=== PATIENT | female | born 1955 | race Caucasian/White ===

== ENCOUNTER 2019-10-07 16:25 | Inpatient (IN) | payer MEDICARE, OTHER ==
[~2019-10-07] VITALS: Ht 160 cm; Wt 45.4 kg
[2019-10-07] MEDS ORDERED: LEVO50TA8 PO (16:58)
[2019-10-07] MEDS ORDERED: ONDA4VIA52 IVP (16:58)
[2019-10-07] MEDS ORDERED: PANT40TA2 PO (16:58)
[2019-10-07] MEDS ORDERED: LORA2VIA11 IM (16:58)
[2019-10-07] MEDS ORDERED: HALO5TAB PO (16:58)
[2019-10-07] MEDS ORDERED: DIPH50VI18 IM (16:58)
[2019-10-07] MEDS ORDERED: CLON0.1T PO (16:58)
[2019-10-07] MEDS ORDERED: MAGN400O6 PO (16:58)
[2019-10-07] MEDS ORDERED: NALO0.4V2 IVP (16:58)
[2019-10-07] MEDS ORDERED: HALO5SYR IM (16:58)
[2019-10-07] MEDS ORDERED: ACET-868 PO (16:58)
[2019-10-07] MEDS ORDERED: MAG HYDROX/AL HYDROX/SIMETH 30 ML UDC PO PRN (17:00)
[2019-10-07] MEDS ORDERED: LORAZEPAM 0.5 MG TABLET PO PRN (17:00)
[2019-10-07] MEDS ORDERED: BLOOD SUGAR DIAGNOSTIC 1 EACH STRIP IN ONE (17:00)
[2019-10-07] MEDS ORDERED: MAGNESIUM HYDROXIDE 30 ML UDC PO PRN ×2 (17:00→21:30)
[2019-10-07] MEDS ORDERED: ACETAMINOPHEN 325 MG TABLET PO PRN ×2 (17:00→21:30)
[2019-10-07 17:04] VITALS: BP 144/71
--- NOTE | 2019-10-07 18:07 | NUR ---
STATEMENT CLERKS MANAGER NOTE:ADMITTED A 64 Y/O FEMALE ON 5150 HOLD FOR DTO . PER 5150 HOLD PATIENT HAS HX OF BIPOLAR AGGRESSIVE TALKS NONSENSICALLY ,STAFF CONCERNS FOR THEIR OWN SAFETY .ON 1:1 ASSESSMENT PATIENT ALERT ,OX1 , EASILY AGITATED ,YELLING AND NOT FOLLOWING DIRECTIONS ,UNSTEADY GAIT ,ON FALL PRECAUTION PATIENT REFUSED MRSA ,PATIENT STATED "LEAVE ME ALONE", AND YELL AND TALKING LOUD ,DISRUPTING THE UNIT. PATIENT HAS HX OF HYPOKALEMIA ,DEHYDRATION ,ANEMIA ,HYPERLIPIDEMIA,KYPHOSIS ,BIPOLAR AND UTI ,SKIN ASSESSMENT DONE REDNESS DOUGLAS ARMS AND DRY LOWER LEFT FOOT ,SKIN DISCOLORATION ON MID CHEST ,LEFT ARM SKIN TEAR . AND NOTIFIED WITH ADMISSION ORDERS .PATIENT'S RIGHT HAND BOOK GIVEN AND EXPLAINED TO PATIENT ABLE TO VERBALIZE UNDERSTANDING .ORIENT PATIENT TO UNIT .START PATIENT ON Q15 MINUTES SAFETY CHECK.
[2019-10-07 20:05] VITALS: BP 138/63
[2019-10-07] MEDS ORDERED: ONDANSETRON HCL/PF 4 MG/2 ML VIAL IVP PRN (21:30)
[2019-10-07] MEDS: TEMAZEPAM 7.5 MG CAPSULE PO PRN (21:41)
--- NOTE | 2019-10-07 21:41 | NUR ---
GPS-RN NOTE: INSOMNIA PATIENT C/O INABILITY TO SLEEP. ADMINISTERED RESTORIL 7.5MG PO ORDERED. WILL CONTINUE TO MONITOR FOR SAFETY.
--- NOTE | 2019-10-08 06:48 | NUR ---
GPS RN NOTE, PATIENT HAS A COMPLAINT OF CONSTIPATION AND IS REQUESTING MOM AT THIS TIME. PATIENT VITAL SIGNS ARE STABLE. GAVE MOM 30 ML PO Q DAILY PRN ORDERED. WILL CONTINUE TO MONITOR THIS PATIENT.
[2019-10-08] MEDS: PANTOPRAZOLE 40 MG TABLET.DR PO SCH (07:56)
[2019-10-08] MEDS: LEVOTHYROXINE SODIUM 50 MCG TABLET PO SCH (07:56)
[2019-10-08 08:00] VITALS: BP 135/79
[2019-10-08] MEDS: CLONIDINE HCL 0.1 MG TABLET PO SCH ×2 (08:12→16:05)
[2019-10-08 08:42] LABS: ALBUMIN 2.2 g/dL (3.4-5.0); BILIRUBIN,TOTAL 0.7 mg/dL (0.2-1.0); CALCIUM, SERUM 8.3 mg/dL (8.5-10.1); CREATININE 0.6 mg/dL (0.6-1.3); POTASSIUM 3.8 mmol/L (3.5-5.1); TOTAL PROTEIN, SERUM 5.4 g/dL (6.4-8.2)
[2019-10-08] MEDS: BENZTROPINE MESYLATE (1 MG) 1 MG TABLET PO SCH ×2 (11:08→16:04)
[2019-10-08] MEDS: HALOPERIDOL 5 MG TABLET PO SCH ×2 (11:08→16:05)
[2019-10-08] MEDS: GABAPENTIN 100 MG CAPSULE PO SCH ×2 (12:19→16:04)
--- NOTE | 2019-10-08 13:25 | NUR ---
Terrell Mazariegos made aware of the discharge and said to continue same meds and d/c prn. Terrell Mazariegos ordered Covid 19 test in the facility. Addendum: 10/08/19 at 1549 by BEHZAD WRIGHT RN wrong pt. documentation
--- NOTE | 2019-10-08 14:05 | NUR ---
Family Contact: SW called the pts motherSil ([phone]), but the phone was disconnected.
--- NOTE | 2019-10-08 14:24 | NUR ---
Initial Discharge Plan: Pt currently lives alone in her home located at [address] [place] [address]; ([phone]). Per pt, she would like to return home but may need some services. SW will work with the pt and the MD regarding appropriate discharge planning. SW will form a safe and proper discharge.
[2019-10-08 16:00] VITALS: BP 141/82
--- NOTE | 2019-10-08 18:28 | NUR ---
GPS/RN-NOTES PER ACCIDENT INVESTIGATOR AT AROUND 1800 PATIENT ROOMMATE SHOUTED FOR HELP, CHARGE NURSE AND ACCIDENT INVESTIGATOR STAFF COME TO THE ROOM AND FOUND PATIENT SITTING ON THE FLOOR AND ASSIST PATIENT UP THE BED.ON FACE TO FACE ASSESSMENT BY THE MECHATRONICS ENGINEER PATIENT STATED" I PARK MY WALKER AND WALK TO MY BED AND HIT THE WALL AND FELL". NOTED A BUMP ON THE LEFT SIDE OF THE FOREHEAD COLD PACK APPLIED. VITAL SIGN FOLLOWS BP 119/71,P75,R 20,TEMP. 98.7 AND 02 SAT 98% ROOM AIR. DR. CRUZ MADE AWARE WITH T.O ORDER OF CT OF THE HEAD WITHOUT CONTRAST. NOTED AND CARRIED OUT BY THE CHARGE NURSE. ROTARY PUMP OPERATOR,HEAD BANQUET WAITRESS AND DR. MENDEZ MADE AWARE OF THE INCIDENT. CALLED PATIENT'S MOTHER HUA ESCOBAR AT ([phone]) BUT THE NUMBER WAS NOT INSERVICE.WILL CONT. MONITORING PATIENT FOR ANY SIGNIFICANT CHANGES AND WILL ENDORSE TO INCOMING NURSE FOR CONTINUITY OF CARE.
--- NOTE | 2019-10-08 18:39 | NUR ---
Dr. Rizzo made aware of the fall incident and ordered to change Haldol to 2.5 mg po BID.
--- NOTE | 2019-10-08 20:13 | NUR ---
GPS RN NOTES: CT SCAN RESULTS RECEIVE CT SCAN WO CONTRAST RESULTS. WITH RESULTS SHOW NO ACUTE INTER HEMORRHAGE, POST TRAUMATIC SOFT TISSUE SWELLING LATERAL LEFT FRONTAL SCALP, AND CHRONIC MICROVASCULAR ISCHEMIC DISEASE. RESULTS REVIEWED AND SIGNED BY MD GABRIEL CARR. PT HAS NO S/S OF PAIN AT THIS TIME. BREATHING EVEN AND UNLABORED. NO SON. NO RESP DISTRESS. BREATHING EVEN AND UNLABORED. CONTINUE TO MONITOR.
[2019-10-08] MEDS: ATORVASTATIN 10 MG TABLET PO SCH (21:07)
[2019-10-08 21:09] VITALS: BP 108/53
--- NOTE | 2019-10-09 03:21 | NUR ---
GPS RN NOTES: UPON DOING ROUNDS PT IN BED ASLEEP COMFORTABLE. PT IS EASY TO WAKE UP WITH LIGHT STIMULI. NO S/S OF SOB. BREATHING EVEN AND UNLABORED. NO S/S PF RESPIRATORY DISTRESS. PT HAS NO COMPLAINT OF PAIN AT THIS TIME. BED ALARM ON. BED LOCKED IN PLACE. KEPT CLEAN AND DRY. CONTINUE TO MONITOR.
[2019-10-09 08:00] VITALS: BP_SYST 139; BP_SYST 140; BP_DIAS 54; BP_DIAS 75
[2019-10-09] MEDS: LEVOTHYROXINE SODIUM 50 MCG TABLET PO SCH (08:41)
[2019-10-09] MEDS: CLONIDINE HCL 0.1 MG TABLET PO SCH ×2 (08:41→17:58)
[2019-10-09] MEDS: PANTOPRAZOLE 40 MG TABLET.DR PO SCH (08:42)
[2019-10-09] MEDS: GABAPENTIN 100 MG CAPSULE PO SCH ×3 (08:42→17:59)
[2019-10-09] MEDS: BENZTROPINE MESYLATE (1 MG) 1 MG TABLET PO SCH ×2 (08:42→17:59)
[2019-10-09] MEDS ORDERED: HALOPERIDOL 5 MG TABLET PO SCH (09:00)
[2019-10-09] MEDS: HALOPERIDOL 5 MG TABLET PO SCH ×2 (12:16→17:58)
[2019-10-09] MEDS ORDERED: GABAPENTIN 100 MG CAPSULE PO SCH (13:00)
--- NOTE | 2019-10-09 14:15 | NUR ---
Individual Intervention: SW attempted to encourage the pt to participate in group therapy but the pt appeared to be agitated and was screaming at the nurses about her coffee. Pt refused to attend group or have an individual session with the SW. SW deemed the pt inappropriate for therapy at this time due to her agitation.
[2019-10-09 16:00] VITALS: BP 122/68
--- NOTE | 2019-10-09 16:49 | NUR ---
Daughter called to check in on her mother. Daughters phone number is [phone].
[2019-10-09 21:17] VITALS: BP 125/47
[2019-10-09] MEDS: ATORVASTATIN 10 MG TABLET PO SCH (21:28)
[2019-10-09] MEDS: TEMAZEPAM 7.5 MG CAPSULE PO PRN (21:28)
[2019-10-10] MEDS: LEVOTHYROXINE SODIUM 50 MCG TABLET PO SCH (07:52)
[2019-10-10] MEDS: PANTOPRAZOLE 40 MG TABLET.DR PO SCH (07:52)
[2019-10-10 08:00] VITALS: BP 127/73
[2019-10-10] MEDS: CLONIDINE HCL 0.1 MG TABLET PO SCH ×2 (08:11→17:01)
[2019-10-10] MEDS: HALOPERIDOL 5 MG TABLET PO SCH ×2 (08:12→13:54)
[2019-10-10] MEDS: GABAPENTIN 100 MG CAPSULE PO SCH ×2 (08:12→17:02)
[2019-10-10] MEDS: BENZTROPINE MESYLATE (1 MG) 1 MG TABLET PO SCH ×2 (08:12→17:02)
--- NOTE | 2019-10-10 09:00 | NUR ---
RN NOTE- PT ANXIOUS AND LOUD AT TIMES, RESPONDING TO INTERNAL STIMULUS, TALKING TO SELF MUMBLING. PT PO INTAKE GOOD MED COMPLIANT, DENIES SI HI AH VH. REORIENTATION REDIRECTION NEEDED AT TIMES
[2019-10-10] MEDS ORDERED: GABAPENTIN 100 MG CAPSULE PO SCH (13:00)
[2019-10-10 16:00] VITALS: BP 134/65
[2019-10-10 20:00] VITALS: BP 115/73
[2019-10-10] MEDS ORDERED: HALOPERIDOL 5 MG TABLET PO SCH ×2 (20:00)
[2019-10-10] MEDS: ATORVASTATIN 10 MG TABLET PO SCH (21:43)
[2019-10-10] MEDS: TEMAZEPAM 7.5 MG CAPSULE PO PRN (21:46)
--- NOTE | 2019-10-11 07:10 | NUR ---
GPS RN OPENING NOTES RECEIVED PT SITTING BY THE EDGE OF THE BED. AO X1. NO SOB NOTED. NO S/S OF ANY ACUTE DISTRESS NOTED. NO C/O PAIN AT THIS TIME. RESPIRATIONS EVEN AND UNLABORED WITH EQUAL RISE AND FALL OF THE CHEST. PT ON RA AND SATURATING AT 99%. PT DENIES ANY SI, HI, AH AND VH AT THIS TIME. PT ANXIOUS, LOUD AND MUMBLING AT TIMES. PT REORIENTATION AND REDIRECTION NEEDED AT TIMES. BED IN LOWEST LOCKED POSITION, HOB ELEVATE, SIDE RAILS UP, BED ALARM ON, CALL LIGHT WITHIN REACH, WILL CONTINUE TO MONITOR Q15MIN
[2019-10-11 08:00] VITALS: BP 138/82
[2019-10-11] MEDS: HALOPERIDOL 5 MG TABLET PO SCH ×3 (08:00→20:08)
[2019-10-11] MEDS: PANTOPRAZOLE 40 MG TABLET.DR PO SCH (08:00)
[2019-10-11] MEDS: CLONIDINE HCL 0.1 MG TABLET PO SCH ×2 (08:01→16:51)
[2019-10-11] MEDS: BENZTROPINE MESYLATE (1 MG) 1 MG TABLET PO SCH ×2 (08:01→16:51)
[2019-10-11] MEDS: GABAPENTIN 100 MG CAPSULE PO SCH ×3 (08:01→16:51)
[2019-10-11] MEDS: LEVOTHYROXINE SODIUM 50 MCG TABLET PO SCH (08:02)
[2019-10-11 16:00] VITALS: BP 140/77
--- NOTE | 2019-10-11 19:50 | NUR ---
GPS RN NOTES RECEIVED PATIENT FROM MORNING SHIFT, ALERT AND ORIENTED X 2. HYPERVERBAL, ANXIOUS AND EASILY AGITATED. BREATHING REGULAR AND UNLABORED ON ROOM AIR. DENIES ANY SUICIDAL IDEATION, NO S/S OF PAIN/DISCOMFORT NOTED AT THIS TIME. BED LOW AND LOCKED ON SEMI FOWLERS POSITION. WILL CONTINUE TO MONITOR FOR SAFETY AND BEHAVIOR.
[2019-10-11 20:00] VITALS: BP 98/55
[2019-10-11 21:22] VITALS: BP 98/55
[2019-10-11] MEDS: ATORVASTATIN 10 MG TABLET PO SCH (21:54)
--- NOTE | 2019-10-12 06:25 | NUR ---
GPS RN NOTES PATIENT IN BED ALERT AND ORIENTED X 1-2 HYPERVERBAL, AGITATED AND ATTENTION SEEKING. AFEBRILE WITH NO S/S OF DISTRESS OBSERVED. DENIES ANY PAIN/DISCOMFORT. BED LOW AND LOCKED ON SEMI FOWLERS POSITION. WILL ENDORSE TO MORNING SHIFT FOR TANIYA.
[2019-10-12 08:00] VITALS: BP 155/96
[2019-10-12] MEDS: GABAPENTIN 100 MG CAPSULE PO SCH ×3 (08:33→16:12)
[2019-10-12] MEDS: LEVOTHYROXINE SODIUM 50 MCG TABLET PO SCH (08:33)
[2019-10-12] MEDS: BENZTROPINE MESYLATE (1 MG) 1 MG TABLET PO SCH ×2 (08:33→16:12)
[2019-10-12] MEDS: CLONIDINE HCL 0.1 MG TABLET PO SCH ×2 (08:33→16:12)
[2019-10-12] MEDS: PANTOPRAZOLE 40 MG TABLET.DR PO SCH (08:33)
[2019-10-12] MEDS: HALOPERIDOL 5 MG TABLET PO SCH ×3 (08:34→20:16)
--- NOTE | 2019-10-12 10:46 | NUR ---
SNF Referral: SW faxed a referral to the following two alf facilities: [facility] with attn to Ashlie to the fax number: [phone] [facility] with attn to Lorie to the fax number: [phone].
--- NOTE | 2019-10-12 13:57 | NUR ---
SNF Referral: Susie ([phone]) from [facility] contacted the SW and stated that they are not accepting pts at this time.
--- NOTE | 2019-10-12 14:23 | NUR ---
Individual Counseling: This SW met with pt. at bedside to facilitate therapeutic milieu. However, the pt. is not suitable for therapeutic milieu as they present irritable, agitated and verbally aggressive. Patient will be invited to participate in future therapeutic milieu.
--- NOTE | 2019-10-12 15:17 | NUR ---
SNF Contact: Ashlie ([phone]) from [facility] contacted the SW and stated that the pt was admitted to their facility.
[2019-10-12 16:00] VITALS: BP 144/83
--- NOTE | 2019-10-12 16:48 | NUR ---
INDIVIDUAL MEETING: SW met with pt to discuss her discharge plan, pt refused SNF placement and states she wants to return to her home with her caregiver and daughter. Pt requested SW call her daughter to arrange transportation with her. SW stated she would call her daughter Juanita ([phone]) to ask if it is safe for her to return to her home where pt lives alone and also to confirm if pt has a caregiver.
--- NOTE | 2019-10-12 16:50 | NUR ---
FAMILY CONTACT: SW contacted pts daughter Juanita ([phone]) to discuss pts discharge plan. Daughter states pt is not able to return to her home as pts home is inhabitable and pt is unable to care for herself. She states that pts caregiver is also unable to care for pt due to COVID-19. Daughter wishes for pt to be discharged to a SNF. SW informed her that pt has been referred to a SNF and placement is pending. SW will update daughter as needed.
[2019-10-12 20:28] VITALS: BP 158/95
[2019-10-12] MEDS: ATORVASTATIN 10 MG TABLET PO SCH (21:23)
--- NOTE | 2019-10-13 04:01 | NUR ---
GPS RN NOTES: UPON DOING ROUNDS PT AWAKE. ASKED PT TO EXPRESS ANY CONCERNS SHE HAS. PT STATED, "NO. IM GOOD. I HAD A GOOD QUICK NAP EARLIER PLUS MY ROOMMATE USED THE RESTROOM NOT TO LONG AGO, SO IT WOKE ME UP." PT DENIES ANY PAIN OF NOW. PT DENIES HEADACHE OF RIGHT NOW. NO S/S OF RESP DISTRESS. BREATHING EVEN AND UNLABORED. NO SOB. PT IS LYING IN BED COMFORTABLY WITH BED ALARM ON. CALL DUPREE WITHIN REACH. BED LOCKED AND LOWEST POSITION FOR FALL RISKS. ENCOURAGED PT TO EXPRESS TO STAFF IF SHE HAS ANY OTHER CONCERNS SHE MAY HAVE ANYTIME. PT AGREED AND UNDERSTANDS. CONTINUE TO MONITOR.
--- NOTE | 2019-10-13 04:53 | NUR ---
GPS RN NOTES: UPON DOING ROUNDS, PT AWAKE SITTING ON HER BED TALKING TO HERSELF QUIETLY AND SPEAKING INAPPROPRIATE LANGUAGE. ASKED PT TO EXPRESS ANY CONCERNS TO STAFF. PT QUIET IN RESPONSE. ASKED PT IF SHE IS FEELING ANXIOUS PT STATED, "MAYBE I AM, MAYBE IM NOT. WHAT WILL YOU DO?" OFFERED ATIVAN 0.5MG PO PRN ORDERED. PT REFUSED. OFFERED TO TO CHECK VITAL SIGNS. PT REFUSED. PT INCREASE AGITATION. EXPLAIN RISKS AND BENEFITS. PT STILL REFUSED X3. CONTINUE TO MONITOR.
[2019-10-13 07:29] LABS: EOSINOPHILS % (AUTO) 1.2 % (0.0-6.0); HEMATOCRIT 30 % (33-45); HEMOGLOBIN 10.2 g/dL (11.5-14.8); LYMPHOCYTES % (AUTO) 20.9 % (20.0-44.0); MEAN CORPUSCULAR HGB CONC 34 g/dl (31.0-36.0); MEAN CORPUSCULAR VOLUME 106 fL (82-100); MONOCYTES # (AUTO) 0.3 /CMM (0.1-1.30); NEUTROPHILS # (AUTO) 3.4 /CMM (1.8-8.9); NEUTROPHILS % (AUTO) 69.9 % (43.0-81.0); PLATELET COUNT (AUTO) 212 /CMM (150-450); RED BLOOD CELL COUNT(AUTO) 2.87 MIL/uL (4.0-5.2); WHITE BLOOD COUNT (AUTO) 4.8 K/uL (4.3-11.0)
[2019-10-13 07:47] LABS: ALBUMIN 2.1 g/dL (3.4-5.0); BILIRUBIN,TOTAL 0.5 mg/dL (0.2-1.0); CALCIUM, SERUM 8.3 mg/dL (8.5-10.1); CREATININE 0.5 mg/dL (0.6-1.3); POTASSIUM 3.6 mmol/L (3.5-5.1); TOTAL PROTEIN, SERUM 5.3 g/dL (6.4-8.2)
[2019-10-13] MEDS: LEVOTHYROXINE SODIUM 50 MCG TABLET PO SCH (07:56)
[2019-10-13] MEDS: PANTOPRAZOLE 40 MG TABLET.DR PO SCH (07:56)
[2019-10-13 08:00] VITALS: BP 146/88
[2019-10-13] MEDS: HALOPERIDOL 5 MG TABLET PO SCH ×3 (08:04→20:30)
[2019-10-13] MEDS: CLONIDINE HCL 0.1 MG TABLET PO SCH ×2 (08:05→16:28)
[2019-10-13] MEDS: GABAPENTIN 100 MG CAPSULE PO SCH ×3 (08:05→16:28)
[2019-10-13] MEDS: BENZTROPINE MESYLATE (1 MG) 1 MG TABLET PO SCH ×2 (08:05→16:28)
[2019-10-13 16:00] VITALS: BP 129/75
[2019-10-13 20:56] VITALS: BP 130/76
[2019-10-13] MEDS: ATORVASTATIN 10 MG TABLET PO SCH (21:09)
[2019-10-14] MEDS: PANTOPRAZOLE 40 MG TABLET.DR PO SCH (07:30)
[2019-10-14] MEDS: LEVOTHYROXINE SODIUM 50 MCG TABLET PO SCH (07:30)
[2019-10-14 08:00] VITALS: BP 152/97
[2019-10-14] MEDS: HALOPERIDOL 5 MG TABLET PO SCH ×3 (08:49→20:28)
[2019-10-14] MEDS: BENZTROPINE MESYLATE (1 MG) 1 MG TABLET PO SCH ×2 (08:50→17:54)
[2019-10-14] MEDS: CLONIDINE HCL 0.1 MG TABLET PO SCH ×2 (08:51→17:54)
[2019-10-14] MEDS: GABAPENTIN 100 MG CAPSULE PO SCH ×3 (08:52→17:54)
[2019-10-14 16:00] VITALS: BP 150/66
[2019-10-14 20:56] VITALS: BP 121/57
[2019-10-14] MEDS: ATORVASTATIN 10 MG TABLET PO SCH (21:03)
[2019-10-15 08:00] VITALS: BP 156/84
[2019-10-15] MEDS: CLONIDINE HCL 0.1 MG TABLET PO SCH ×2 (08:05→16:25)
[2019-10-15] MEDS: GABAPENTIN 100 MG CAPSULE PO SCH ×3 (08:05→16:25)
[2019-10-15] MEDS: BENZTROPINE MESYLATE (1 MG) 1 MG TABLET PO SCH ×2 (08:05→16:26)
[2019-10-15] MEDS: PANTOPRAZOLE 40 MG TABLET.DR PO SCH (08:05)
[2019-10-15] MEDS: LEVOTHYROXINE SODIUM 50 MCG TABLET PO SCH (08:06)
[2019-10-15] MEDS: HALOPERIDOL 5 MG TABLET PO SCH ×3 (08:06→20:06)
--- NOTE | 2019-10-15 12:00 | NUR ---
RN NOTES PT SEEN AND EVALUATED BY DR MENDEZ THIS MORNING AND RECOMMENDED TO TEST FOR COVID AND FOR HOSPITALIST/TS. PT HAS COUGH, NON PRODUCTIVE. PT AFEBRILE, 98.6. HOSPITALIST/TS PAGED AND SPOKE TO HIM WITH LAB ORDERS NOTED, LDH, FERRITIN AND CRP STAT; AND TO NOTIFY TS WITH THE RESULTS. WILL CONTINUE TO MONITOR PT.
[2019-10-15 14:55] LABS: FERRITIN 736 ng/mL (8-388)
--- NOTE | 2019-10-15 15:04 | NUR ---
INDIVIDUAL INTERVENTION: SW attempted to meet with pt. However, pt has been experiencing a cough and not feeling well. Pt did not want to talk to SW and was laying in bed.
[2019-10-15 15:07] LABS: C-REACTIVE PROTEIN < 0.2 mg/dL (0.0-0.9)
--- NOTE | 2019-10-15 15:22 | NUR ---
RN NOTES RESULTS CAME BACK AND INFORMED HOSPITALIST/TS. AWAITING FOR FURTHER ORDERS. WILL CONTINUE TO MONITOR PT.
--- NOTE | 2019-10-15 15:40 | NUR ---
RN NOTES HOSPITALIST/TS RESPONDED, PER LAB RESULTS OF LDH, FERRITIN AND CRP. PT DO NOT NEED TO BE TESTED FOR COVID. PT MADE AWARE AND WILL ENDORSE TO INCOMING NIGHT NURSE FOR TANIYA WELL. CN/ZAYNAB MADE AWARE WELL.
[2019-10-15 16:00] VITALS: BP 133/61
[2019-10-15 18:05] LABS: BASOPHILS # (AUTO) 0.1 /CMM (0.0-0.2); BASOPHILS % (AUTO) 1.3 % (0.0-2.0); EOSINOPHILS % (AUTO) 1.3 % (0.0-6.0); HEMATOCRIT 31 % (33-45); HEMOGLOBIN 10.2 g/dL (11.5-14.8); MEAN CORPUSCULAR HGB CONC 33 g/dl (31.0-36.0); MEAN CORPUSCULAR VOLUME 107 fL (82-100); MONOCYTES # (AUTO) 0.4 /CMM (0.1-1.30); MONOCYTES % (AUTO) 7.9 % (2.0-12.0); NEUTROPHILS # (AUTO) 3.2 /CMM (1.8-8.9); NEUTROPHILS % (AUTO) 67.5 % (43.0-81.0); PLATELET COUNT (AUTO) 234 /CMM (150-450); RED BLOOD CELL COUNT(AUTO) 2.85 MIL/uL (4.0-5.2); WHITE BLOOD COUNT (AUTO) 4.7 K/uL (4.3-11.0)
[2019-10-15 18:16] LABS: ALBUMIN 2.2 g/dL (3.4-5.0); BILIRUBIN,TOTAL 0.4 mg/dL (0.2-1.0); CALCIUM, SERUM 7.9 mg/dL (8.5-10.1); CREATININE 0.6 mg/dL (0.6-1.3); POTASSIUM 4.3 mmol/L (3.5-5.1); TOTAL PROTEIN, SERUM 5.6 g/dL (6.4-8.2)
[2019-10-15 20:42] VITALS: BP 142/78
--- NOTE | 2019-10-15 20:45 | NUR ---
GPS RN NOTE, OFFERED COVID-19 TEST AND SWAB FOR THIS PATIENT BUT PATIENT REFUSED STATING, " I DON'T WANT ANY SWAB GOING UP MY NOSE ". OFFERED SWAB THREE TIMES AND STILL PATIENT REFUSED STATING, " I REFUSE, I REFUSE, I REFUSE ". EDUCATED PATIENT ON BENEFITS AND RISKS OF DOING AFOREMENTIONED TEST. PATIENT TEMP IS 98.5 WITH A SPO2 OF 99%. WILL CONTINUE TO MONITOR THIS PATIENT WITH THE HELP OF STAFF.
[2019-10-15] MEDS: ATORVASTATIN 10 MG TABLET PO SCH (21:10)
[2019-10-16 08:00] VITALS: BP 155/82
[2019-10-16] MEDS: HALOPERIDOL 5 MG TABLET PO SCH ×3 (08:12→20:37)
[2019-10-16] MEDS: CLONIDINE HCL 0.1 MG TABLET PO SCH ×2 (08:13→16:24)
[2019-10-16] MEDS: LEVOTHYROXINE SODIUM 50 MCG TABLET PO SCH (08:13)
[2019-10-16] MEDS: GABAPENTIN 100 MG CAPSULE PO SCH ×4 (08:13→20:37)
[2019-10-16] MEDS: PANTOPRAZOLE 40 MG TABLET.DR PO SCH (08:13)
[2019-10-16] MEDS: BENZTROPINE MESYLATE (1 MG) 1 MG TABLET PO SCH ×2 (08:13→16:24)
--- NOTE | 2019-10-16 10:29 | NUR ---
RN NOTE- PT IN ROOM, LOUD OPPOSITIONAL AT TIMES, MED COMPLIANT, NEEDS ATTENDED. REFUSES SHOWER AND ADLS. DENIES ALL. TALKING TO SELF RESPONDING
[2019-10-16 16:13] VITALS: BP 134/74
[2019-10-16 20:19] VITALS: BP 112/70
[2019-10-16] MEDS: ATORVASTATIN 10 MG TABLET PO SCH (21:41)
[2019-10-16] MEDS: TEMAZEPAM 7.5 MG CAPSULE PO PRN (21:42)
--- NOTE | 2019-10-16 22:50 | NUR ---
GPS RN NOTES: AT 2210 PT WAS FOUND ON THE FLOOR OF HER ROOM BY STAFF LAYING ON HER RIGHT SIDE. PT WAS ASSISTED UP AND BACK IN BED AND VITAL SIGNS IMMEDIATELY TAKEN, BP 147/83, P72, T97.7, R 20 AND O2 SAT 98% ON ROOM AIR. WHEN ASKED HOW SHE GOT ON THE FLOOR PT SAID SHE CAN'T REMEMBER BUT THAT FALLING IS NOT A CRIME. LATER, PT CHANGED HER STORY SAYING SHE MIGHT HAVE CRAWLED OUT OF THE BATHROOM. PT WAS IRRITABLE, AND AGITATED. HEAD TO TOE ASSESSMENT DONE WITH EMPHASIS ON NEUROLOGICAL, RESPIRATORY AND INTEGUMENTARY SYSTEMS. PT WAS ALERT AND ORIENTED TO NAME AND PERSON, ABLE TO SPONTANEOUSLY OPEN AND CLOSE HER EYES AND ABLE TO MOVE ALL EXTREMITIES. HEAD IS WITHOUT ANY MASSES, TEARS OR BUMPS, NO SKIN TEARS ON FACE OR NOSE, BILATERAL UPPER AND LOWER EXTREMITIES INTACT, RESPIRATION EVEN AND UNLABORED WITH EQUAL RISE AND FALL OF THE CHEST. DR OROZCO INFORMED OF PT FALL, ORDER FOR PT AND 1.1 SITTER OBTAINED. PT CURRENTLY LAYING IN BED, NO S/S OF ANY FORM OF DISTRESS. FIRST DYER INFORMED, CALLED PATIENT NEXT OF KIN HUA ESCOBAR AT [phone] BUT NUMBER IS NOT IN SERVICE. WILL CONTINUE TO MONITOR FOR ANY CHANGES PER GPS POLICY AND ENDORSE TO AM NURSE FOR CONTINUITY OF CARE.
--- NOTE | 2019-10-17 00:13 | NUR ---
GPS RN NOTE, PAGED DR MENDEZ TO NOTIFY HER THAT PATIENT HAD A UNWITNESSED FALL. DR MENDEZ CALL BACK WITH ORDER TO DO CT OF HEAD WITHOUT CONTRAST. PATIENT REFUSED TO HAVE CT OF DONE AT THIS TIME WHILE YELLING, " FUCK YOU THEIR IS NOTHING WRONG WITH ME, I DID NOT EVEN FALL, I CRAWLED OFF THE TOILET ". INFORMED DR MENDEZ THAT PATIENT IS REFUSING TO HAVE CT OF HEAD DONE AT THIS TIME. DR MENDEZ ORDERED TO HAVE CT OF HEAD WITHOUT CONTRAST TO BE DONE DURING A.M. SHIFT AT 0900. ALL ORDERS NOTED AND CARRIED OUT. PATIENT HAS SITTER AT BED SIDE. WILL CONTINUE TO MONITOR THIS PATIENT WITH THE HELP OF STAFF.
--- NOTE | 2019-10-17 07:30 | NUR ---
GPS RN NOTE, DR OROZCO ORDERED 1.1 SITTER FOR THIS PATIENT. HARBORMASTER TRUE RAUSCH WAS UNABLE TO PROVIDE SITTER OF THIS PATIENT THIS A.M. DUE TO STAFF SHORTAGE. DR OROZCO MADE AWARE WITH NO NEW ORDER. WILL ENDORSE TO A.M. SHIFT NURSE FOR CONTINUATION OF CARE.
[2019-10-17] MEDS: LEVOTHYROXINE SODIUM 50 MCG TABLET PO SCH (07:54)
[2019-10-17] MEDS: HALOPERIDOL 5 MG TABLET PO SCH ×3 (07:54→20:55)
[2019-10-17] MEDS: PANTOPRAZOLE 40 MG TABLET.DR PO SCH (07:54)
[2019-10-17] MEDS: GABAPENTIN 100 MG CAPSULE PO SCH ×4 (07:55→20:54)
[2019-10-17 08:00] VITALS: BP 104/45
[2019-10-17] MEDS: BENZTROPINE MESYLATE (1 MG) 1 MG TABLET PO SCH ×3 (08:00→20:54)
[2019-10-17] MEDS: CLONIDINE HCL 0.1 MG TABLET PO SCH ×2 (08:00→16:53)
--- NOTE | 2019-10-17 09:00 | NUR ---
RN NOTE- PT ATTEMPTING TO WALK WITHOUT WALKER, UNSTEADY, PROFANE OPPOSITIONAL TO CARE YELLING, PLACED IN GLENN CHAIR, RX GIVEN MED COMPLIANT NEEDS ATTENDED. DENIES ALL. RESPONDING TO INTERNAL STIMULUS, TALKING TO OTHERS THAT AREN'T THERE ANGRY OUTBURSTS AT TIMES
--- NOTE | 2019-10-17 10:30 | NUR ---
RN NOTE- PT W PERSISTENT COUGH. FRANTZ LOAIZA SPOKE W DR MENDEZ ON PHONE WHO REPORTED COUGH TO HIM AND HE ORDERED COVID TEST TO RULE OUT.
--- NOTE | 2019-10-17 13:05 | NUR ---
RN NOTE- PT ATTEMPTING TO GET OOB AND WALK WITHOUT ASSSIST. PLACED IN GLENN CHAIR AND NEEDS ATTENDED. MONITOR FOR SAFETY
--- NOTE | 2019-10-17 15:31 | NUR ---
RN NOTE- ANXIETY ATIVN 0.5 MG GIVEN
--- NOTE | 2019-10-17 15:51 | NUR ---
Got an order from Dr. Manzanares to isolate pt. in the isolation while waiting for the Covid 19 test result.
[2019-10-17 16:00] VITALS: BP 150/81
--- NOTE | 2019-10-17 18:48 | NUR ---
Pt. with 1:1 order, per scrap preparation supervisor she can't find a staff to be a sitter.
[2019-10-17 20:00] VITALS: BP 123/75
[2019-10-17] MEDS: ATORVASTATIN 10 MG TABLET PO SCH (21:32)
[2019-10-17] MEDS: TEMAZEPAM 7.5 MG CAPSULE PO PRN (23:12)
--- NOTE | 2019-10-17 23:12 | NUR ---
GPS RN NOTES: INSOMNIA UPON DOING ROUNDS, PT AWAKE TALKING TO SELF. PT YELLING IN HER ROOM AND CURSING OUT LOUD. ENCOURAGE TP TO EXPRESS FEELINGS. PT STATED, "IM AWAKE. DONT YOU SEE THAT?" OFFERED RESTORIL PO PRN ORDERED. PT AGREED AND TOLERATED MEDICATION WELL. CONTINUE TO MONITOR.
--- NOTE | 2019-10-18 03:59 | NUR ---
GPS RN NOTES: UPON DOING ROUNDS PT IS AWAKE. PT IS TALKING TO SELF AND CURSING PROFANITY LANGUAGE IN A LOW TONE VOICE. ASK PT TO EXPRESS HER THOUGHTS AND FEELINGS. PT STATED, "AH FUCK. WHAT YOU WANT?" NO S/S OF SOB. BREATHING EVEN AND UNLABORED. NO RESPIRATORY DISTRESS. OFFERED PT TO DRINK WATER. PT ACCEPT AND TOLERATED DRINKING WATER WELL. CALL DUPREE WITHIN REACH. CONTINUE TO MONITOR.
--- NOTE | 2019-10-18 06:56 | NUR ---
GPS RN NOTE, CLIENT SERVICES ASSOCIATE TRUE RAUSCH WAS UNABLE TO PROVIDE SITTER OF THIS PATIENT THIS A.M. DUE TO STAFF SHORTAGE. WILL ENDORSE TO A.M. SHIFT NURSE FOR CONTINUATION OF CARE.
[2019-10-18 08:00] VITALS: BP 153/73
[2019-10-18] MEDS: LEVOTHYROXINE SODIUM 50 MCG TABLET PO SCH (08:35)
[2019-10-18] MEDS: CLONIDINE HCL 0.1 MG TABLET PO SCH ×2 (08:35→16:46)
[2019-10-18] MEDS: GABAPENTIN 100 MG CAPSULE PO SCH ×4 (08:36→20:51)
[2019-10-18] MEDS: BENZTROPINE MESYLATE (1 MG) 1 MG TABLET PO SCH ×3 (08:36→20:50)
[2019-10-18] MEDS: HALOPERIDOL 5 MG TABLET PO SCH ×3 (08:36→20:51)
[2019-10-18] MEDS: PANTOPRAZOLE 40 MG TABLET.DR PO SCH (08:37)
--- NOTE | 2019-10-18 10:17 | NUR ---
GPS RN NOTE: PT IN THE ROOM AWAKE, ALERT AND ORIENTED X2. FLAT AFFECT, UNCOOPERATIVE, LOOSE ASSOCIATIONS, DISORGANIZED, NO S/S OF ANY DISTRESS. RESPIRATION EVEN AND UNLABORED WITH EQUAL RISE AND FALL OF THE CHEST, ON ROOM AIR. PT DENIES SI AT THIS TIME. Q15 MINUTES OBSERVATION CONTINUED. WILL CONTINUE MONITORING FOR SAFETY AND BEHAVIOR.
--- NOTE | 2019-10-18 11:10 | NUR ---
spoke with RN at 1110. Pt has pending COVID19 test results. Please call Radiology when ready for CT HEAD W/O scan.
[2019-10-18 16:00] VITALS: BP 109/60
[2019-10-18 20:32] VITALS: BP 147/63
[2019-10-18] MEDS: ATORVASTATIN 10 MG TABLET PO SCH (21:25)
[2019-10-19] MEDS: TEMAZEPAM 7.5 MG CAPSULE PO PRN ×2 (00:28→21:23)
--- NOTE | 2019-10-19 00:31 | NUR ---
GPS RN NOTES: INSOMNIA UPON DOING ROUNDS, PT AWAKE TALKING TO SELF. PT CURSING OUT LOUD. ENCOURAGE TP TO EXPRESS FEELINGS. PT STATED, "DO I LOOK LIKE IM SLEEPING ?" OFFERED RESTORIL PO PRN ORDERED. PT AGREED AND TOLERATED MEDICATION WELL. CONTINUE TO MONITOR.
--- NOTE | 2019-10-19 04:15 | NUR ---
GPS RN NOTES: REFUSED PRN MEDICATION UPON DOING ROUNDS, PT STILL AWAKE YELLING IN HER ROOM AND TALKING TO SELF. ASKED PT TO EXPRESS HER THOUGHTS AND FEELINGS TO STAFF. PT STATED, "I WANT VODKA AND CIGARETTES. CAN YOU GET THAT FOR ME? " REMINDED AND EDUCATE PT REGARDING HOSPITAL POLICY ABOUT DRINKING AND SMOKING. PT MORE AGITATED AND ANGRY. OFFERED PT ATIVAN PO PRN ORDERED. PT REFUSED. PT STATED, " DON'T WANT MEDS! STOP DRUGGING ME! LEAVE ME ALONE!" OFFERED PT TYLENOL PRN ORDERED IF PT HAS PAIN. PT DENIES PAIN OF RIGHT NOW. NO SOB OF RESP DISTRESS. BREATHING EVEN AND UNLABORED. CONTINUE TO MONITOR.
[2019-10-19 08:00] VITALS: BP 160/98
[2019-10-19] MEDS: CLONIDINE HCL 0.1 MG TABLET PO SCH ×2 (08:42→16:19)
[2019-10-19] MEDS: PANTOPRAZOLE 40 MG TABLET.DR PO SCH (08:42)
[2019-10-19] MEDS: LEVOTHYROXINE SODIUM 50 MCG TABLET PO SCH (08:42)
[2019-10-19] MEDS: HALOPERIDOL 5 MG TABLET PO SCH ×2 (08:43→12:13)
[2019-10-19] MEDS: BENZTROPINE MESYLATE (1 MG) 1 MG TABLET PO SCH ×2 (08:43→16:18)
[2019-10-19] MEDS: GABAPENTIN 100 MG CAPSULE PO SCH ×3 (08:44→16:19)
[2019-10-19 11:32] LABS: BASOPHILS # (AUTO) 0.1 /CMM (0.0-0.2); BASOPHILS % (AUTO) 1.3 % (0.0-2.0); EOSINOPHILS % (AUTO) 0.8 % (0.0-6.0); HEMATOCRIT 32 % (33-45); HEMOGLOBIN 10.6 g/dL (11.5-14.8); LYMPHOCYTES # (AUTO) 0.9 /CMM (0.8-4.8); LYMPHOCYTES % (AUTO) 19.4 % (20.0-44.0); MEAN CORPUSCULAR HGB CONC 34 g/dl (31.0-36.0); MEAN CORPUSCULAR VOLUME 105 fL (82-100); MONOCYTES # (AUTO) 0.4 /CMM (0.1-1.30); MONOCYTES % (AUTO) 7.9 % (2.0-12.0); NEUTROPHILS # (AUTO) 3.2 /CMM (1.8-8.9); NEUTROPHILS % (AUTO) 70.6 % (43.0-81.0); PLATELET COUNT (AUTO) 230 /CMM (150-450); RED BLOOD CELL COUNT(AUTO) 3.02 MIL/uL (4.0-5.2); WHITE BLOOD COUNT (AUTO) 4.6 K/uL (4.3-11.0)
[2019-10-19 11:39] LABS: CALCIUM, SERUM 8.8 mg/dL (8.5-10.1); CREATININE 0.5 mg/dL (0.6-1.3); POTASSIUM 3.4 mmol/L (3.5-5.1)
[2019-10-19 11:45] LABS: ALBUMIN 2.4 g/dL (3.4-5.0); BILIRUBIN,TOTAL 0.4 mg/dL (0.2-1.0); MAGNESIUM 1.4 mg/dL (1.8-2.4)
[2019-10-19] MEDS ORDERED: POTASSIUM CHLORIDE 20 MEQ TAB.PRT.SR PO ONE (14:00)
[2019-10-19 15:45] VITALS: BP 123/77
[2019-10-19 16:00] VITALS: BP 123/77
[2019-10-19] MEDS ORDERED: HALOPERIDOL 5 MG TABLET PO SCH (17:00)
[2019-10-19 20:42] VITALS: BP 124/79
[2019-10-19] MEDS: ATORVASTATIN 10 MG TABLET PO SCH (21:23)
--- NOTE | 2019-10-19 21:42 | NUR ---
GPS/RN NOTES: PT. HAS AN ORDER OF TEMAZEPAM 7.5MG PO. PER DR. DALTON, GIVE IT BEFORE 10PM. ADMINISTERED. AND PT. TOLERATED WELL. WILL KEEP MONITORING AND REASSESS.
[2019-10-19 22:45] LABS: APPEARANCE,URINE CLEAR (CLEAR); BILIRUBIN,URINE NEGATIVE (NEGATIVE); BLOOD, URINE NEGATIVE Ery/uL (NEGATIVE); COLOR,URINE YELLOW (YELLOW); KETONES,URINE NEGATIVE (NEGATIVE); LEUKOCYTE ESTERASE ,URINE NEGATIVE (NEGATIVE); NITRITE, URINE NEGATIVE (NEGATIVE); PROTEIN,URINE NEGATIVE (NEGATIVE); UGLUCOSE NEGATIVE (NEGATIVE); UROBILINOGEN,URINE 0.2 EU/dL (0.2)
[2019-10-20] MEDS: PANTOPRAZOLE 40 MG TABLET.DR PO SCH (07:49)
[2019-10-20] MEDS: GABAPENTIN 100 MG CAPSULE PO SCH ×2 (07:49→12:06)
[2019-10-20] MEDS: LEVOTHYROXINE SODIUM 50 MCG TABLET PO SCH (07:49)
[2019-10-20] MEDS: HALOPERIDOL 5 MG TABLET PO SCH (07:50)
[2019-10-20 08:00] VITALS: BP 169/90
--- NOTE | 2019-10-20 08:21 | NUR ---
FAMILY CONTACT: SW contacted pts daughter Juanita ([phone]) to inform her that pt will be discharged on this present day to [facility] at 1300. Daughter agreed with discharge plan.
[2019-10-20 08:36] VITALS: BP 169/90
[2019-10-20] MEDS: BENZTROPINE MESYLATE (1 MG) 1 MG TABLET PO SCH (08:36)
[2019-10-20] MEDS: CLONIDINE HCL 0.1 MG TABLET PO SCH (08:36)
--- NOTE | 2019-10-20 09:00 | NUR ---
RN NOTE- PT ALERT CONFUSED IRRITABLE AT TIMES THOUGH NOT THIS MORNING. INTAKE GOOD, MED COMPLIANT
--- NOTE | 2019-10-20 09:12 | NUR ---
DISCHARGE NOTE: Pt will be discharged at 13:00 via AM WEST to [facility] ([facility]) [address] [facility] [address] . Pts daughter Juanita ([phone]) has been notified and agrees with discharge. Pts mood is labile with congruent affect. Pt denied visual/auditory hallucinations and denied suicidal/homicidal ideation. Pt will be under the care of Psychiatrist: Dr. Elizabeth Rizzo [address] [facility] [address], [place] [address] and Button Reclaimer: Dr. Juan Luis Vanegas Address: [address] [place] [address] [address], [place] [address] . The multidisciplinary exit care form was done, printed, signed, and given to the patient.
[2019-10-20] MEDS ORDERED: HALOPERIDOL 5 MG TABLET PO SCH (13:00)
--- NOTE | 2019-10-20 13:45 | NUR ---
RN DC NOTE- PT DC TO [facility] AT THIS TIME VIA AMBULANCE. PT ALERT ORIENTED TO SELF, CONFUSED DISORGANIZED, MED COMPLIANT AND HAVING NO BEHAVIORAL ISSUES AT PRESENT. DC INSTRUCTIONS GIVEN AND ORDERS GIVEN TO RN AT FACILITY AT 11AM. DC INSTRUCTIONS REVIEWED W AMBULANCE STAFF. VALUABLES RETURNED TO PT. ID [id number] REMOVED. PT ESCORTED OFF UNIT BY AMBULANCE STAFF Addendum: 10/20/19 at 1351 by BENJAMIN MONTESINOS RN DC VS- 150/78, HR- 72. RR-18, T 98.0 SAT 99%
== END 2019-10-20 16:08 | DRG 885 ==
LOC: GPS 16:25
PROVIDERS: ADMIT Psychiatry & Neurology Psychosomatic Medicine; ATTEND Internal Medicine
DX: F25.0 Schizoaffective disorder, bipolar type (principal); F01.50 Vascular dementia, unspecified severity, without behavioral disturbance, psychotic disturbance, mood disturbance, and anxiety; F29 Unspecified psychosis not due to a substance or known physiological condition; F41.9 Anxiety disorder, unspecified; G62.9 Polyneuropathy, unspecified; E78.5 Hyperlipidemia, unspecified; I10 Essential (primary) hypertension; E03.9 Hypothyroidism, unspecified; Z91.81 History of falling; F10.10 Alcohol abuse, uncomplicated
CPT/HCPCS: 36415; 70450-TC; 80053-TC; 80061-TC; 81000-TC; 82728-TC; 82962-TC; 83615-TC; 83735-TC; 85025-TC; 86140-TC; 87086-TC; 97116-TC; 97530-TC; J2405; U0003-CS